=== PATIENT | male | born 1940 | race African-American/Black ===

== ENCOUNTER 2018-03-21 11:44 | Observation (INO) ==
[2018-03-21] MEDS ORDERED: NITROGLYCERIN 2% OINT 1 INCH/GM PACK TOP STA (13:03)
[2018-03-21] MEDS ORDERED: ASPIRIN 325 MG TABLET PO STA (13:03)
[2018-03-21 13:31] LABS: Basophils % 0.5 % (0.0-0.8); Eosinophils # 0.3 10*3/uL (0.0-0.87); Hematocrit 39.2 VOL% (42.0-52.0); Hemoglobin 12.5 GM/DL (14.0-18.0); Immature Granulocytes % 0.2 %; Immature Granulocytes Absolute 0.02 #; Lymphocytes # 2.2 10*3/uL (1.4-4.0); Lymphocytes % 26.7 % (21.2-54.2); Mean Corpuscular HGB Conc 31.9 GM/DL (32-36); Mean Corpuscular Hemoglobin 31 PG (27-34); Mean Corpuscular Volume 96.6 FL (87-102); Mean Platelet Volume 12.1 FL (9.6-12.0); Monocytes # 0.6 10*3/uL (0.11-0.8); Neutrophils # 5.1 10*3/uL (1.4-7.4); Neutrophils % 61.6 % (38.7-73.9); Platelet Count 204 T/CUMM (130-400); Red Blood Count 4.06 MC/CUMM (3.8-5.5); Red Cell Distribution Width 13.2 % (9.3-17.3); White Blood Count 8.3 T/CUMM (4-12)
[2018-03-21 13:40] LABS: Apearance,Urine CLEAR (Clear); Bilirubin,Urine Negative (Negative); Blood, Urine Negative (Negative); Glucose,Urine (UA) Negative (Negative); Ketones,Urine Negative (Negative); Mucus,Urine Occasional /LPF (Occasional); Nitrite,Urine Negative (Negative); Protein,Urine 30 MG/DL; RBC,Urine <1 /HPF (0-4); Urine Color Yellow (Yellow); Urine Specific Gravity 1.012 (1.001-1.035); Urine Urobilinogen < 2.0 EU/DL (0.2-1.0); WBC,Urine <1 /HPF (0-6)
[2018-03-21 13:46] LABS: PT Patient Result 10.5 SECS
[2018-03-21 14:11] LABS: Albumin 3.8 G/DL (3.4-5.0); Bilirubin,Total 0.5 MG/DL (0.2-1.0); Calcium 9.1 MG/DL (8.5-10.1); Osmolality,Calculated 285.3 MOS/KG (273-304); Potassium 4.5 MMOL/L (3.5-5.1); Total Protein 7.5 G/DL (6.4-8.3)
[2018-03-21] MEDS ORDERED: GLUCAGON 1 MG VIAL IM PRN (15:32)
[2018-03-21] MEDS ORDERED: MORPHINE 4 MG/1 ML VIAL IV PRN (15:32)
[2018-03-21] MEDS ORDERED: DEXTROSE 50% 25 GM/50 ML VIAL IV PRN (15:32)
[2018-03-21] MEDS ORDERED: ONDANSETRON 4 MG/2 ML VIAL IV PRN (15:32)
[2018-03-21] MEDS ORDERED: ALUM/MAG/SIMETH/LIDO VISC 1:1 30 ML BOTTLE PO STA (15:41)
[2018-03-21] MEDS ORDERED: ACETAMINOPHEN 325 MG TABLET PO PRN (16:52)
[2018-03-21] MEDS ORDERED: ALBUTEROL 2.5 MG/3 ML NEB RESP TX PRN (16:52)
[2018-03-21] MEDS: INSULIN LISPRO 100 UNIT/ML SUBCUT SCH ×2 (17:56→21:26)
[2018-03-21] MEDS: CARVEDILOL 6.25 MG TABLET PO SCH (21:24)
[2018-03-21] MEDS: MAGNESIUM CHLORIDE 64 MG TABLET PO SCH (21:25)
[2018-03-21] MEDS: PANTOPRAZOLE 40 MG TABLET PO SCH (21:25)
[2018-03-21] MEDS: metFORMIN 500 MG TABLET PO SCH (21:25)
[2018-03-21] MEDS: THEOPHYLLINE ER 300 MG TABLET PO SCH (21:26)
[2018-03-22 04:28] LABS: Basophils % 0.5 % (0.0-0.8); Eosinophils # 0.3 10*3/uL (0.0-0.87); Eosinophils % 4.2 % (0.00-10.9); Hematocrit 35.7 VOL% (42.0-52.0); Hemoglobin 11.5 GM/DL (14.0-18.0); Immature Granulocytes % 0.4 %; Immature Granulocytes Absolute 0.03 #; Lymphocytes # 2.7 10*3/uL (1.4-4.0); Lymphocytes % 34.6 % (21.2-54.2); Mean Corpuscular HGB Conc 32.2 GM/DL (32-36); Mean Corpuscular Hemoglobin 31 PG (27-34); Mean Corpuscular Volume 94.9 FL (87-102); Mean Platelet Volume 12.2 FL (9.6-12.0); Monocytes # 0.6 10*3/uL (0.11-0.8); Monocytes % 7.4 % (1.7-12.7); Neutrophils # 4.2 10*3/uL (1.4-7.4); Neutrophils % 52.9 % (38.7-73.9); Platelet Count 189 T/CUMM (130-400); Red Blood Count 3.76 MC/CUMM (3.8-5.5); Red Cell Distribution Width 13.3 % (9.3-17.3); White Blood Count 7.9 T/CUMM (4-12)
[2018-03-22 05:15] LABS: Calcium 8.6 MG/DL (8.5-10.1); Osmolality,Calculated 280.4 MOS/KG (273-304); Potassium 4.1 MMOL/L (3.5-5.1); Risk Ratio 2.78; Thyroid Stimulating Hormone 0.612 uIU/ml (0.358-3.74); VLDL CHOLESTEROL 21.6 MG/DL
[2018-03-22] MEDS ORDERED: buPROPion XL 150 MG TABLET PO SCH (09:00)
[2018-03-22] MEDS ORDERED: PRAVASTATIN 20 MG TABLET PO SCH (09:00)
[2018-03-22] MEDS ORDERED: BUMETANIDE 1 MG TABLET PO SCH (09:00)
[2018-03-22] MEDS ORDERED: SERTRALINE 50 MG TABLET PO SCH (09:00)
[2018-03-22] MEDS ORDERED: ASPIRIN EC 325 MG TABLET PO SCH (09:00)
[2018-03-22] MEDS: INSULIN LISPRO 100 UNIT/ML SUBCUT SCH ×3 (09:54→17:14)
[2018-03-22] MEDS: CARVEDILOL 6.25 MG TABLET PO SCH ×2 (09:54→16:47)
[2018-03-22] MEDS: THEOPHYLLINE ER 300 MG TABLET PO SCH ×2 (09:54→16:47)
[2018-03-22] MEDS: metFORMIN 500 MG TABLET PO SCH ×2 (09:54→16:47)
[2018-03-22] MEDS: PANTOPRAZOLE 40 MG TABLET PO SCH (14:24)
[2018-03-22] MEDS: MAGNESIUM CHLORIDE 64 MG TABLET PO SCH (14:24)
[2018-03-22 17:28] VITALS: BP 107/63
== END 2018-03-22 18:15 | disposition home health service (06) ==
LOC: N.ED 11:44 → N.EDINP 11:44 → SUATTDRO 15:32 → N.TELEN 16:51
PROVIDERS: ADMIT Internal Medicine; ATTEND Hospitalist

== ENCOUNTER 2019-06-21 14:20 | Inpatient (IN) ==
[2019-06-21 16:06] LABS: Basophils # 0.1 10*3/uL (0.0-0.2); Basophils % 0.6 % (0.0-0.8); Eosinophils # 0.5 10*3/uL (0.0-0.87); Eosinophils % 3.1 % (0.00-10.9); Hematocrit 34.7 VOL% (42.0-52.0); Hemoglobin 11.3 GM/DL (14.0-18.0); Immature Granulocytes % 0.4 %; Immature Granulocytes Absolute 0.06 #; Lymphocytes # 2.7 10*3/uL (1.4-4.0); Mean Corpuscular HGB Conc 32.6 GM/DL (32-36); Mean Corpuscular Volume 95.9 FL (87-102); Mean Platelet Volume 10.8 FL (9.6-12.0); Monocytes % 5.2 % (1.7-12.7); Neutrophils % 71.7 % (38.7-73.9); Platelet Count 233 T/CUMM (130-400); Red Blood Count 3.62 MC/CUMM (3.8-5.5); Red Cell Distribution Width 13.3 % (9.3-17.3); White Blood Count 14.4 T/CUMM (4-12)
[2019-06-21 16:29] LABS: Alanine Aminotransferase 10 U/L (16-61); Albumin 3.3 G/DL (3.4-5.0); Alkaline Phosphatase 71 U/L (45-117); Aspartate Amino Transferase 11 U/L (0-37); Bilirubin,Total < 0.39 MG/DL (0.2-1.0); Blood Urea Nitrogen 49 MG/DL (7-18); Calcium 8.3 MG/DL (8.5-10.1); Estimated Glom Filtration Rate 69 ML/MIN; Glucose 100 MG/DL (74-106); Osmolality,Calculated 291.4 MOS/KG (273-304); Total Protein 7.3 G/DL (6.4-8.3)
[2019-06-21] MEDS ORDERED: NITROGLYCERIN SL 0.4 MG TABLET SL PRN (17:13)
[2019-06-21] MEDS ORDERED: DEXTROSE 50% 25 GM/50 ML VIAL IV PRN ×2 (17:27)
[2019-06-21] MEDS ORDERED: ONDANSETRON 4 MG/2 ML VIAL IV PRN (17:27)
[2019-06-21] MEDS ORDERED: ZALEPLON 5 MG CAPSULE PO PRN (17:27)
[2019-06-21] MEDS ORDERED: ACETAMINOPHEN 325 MG TABLET PO PRN (17:27)
[2019-06-21] MEDS ORDERED: GLUCAGON 1 MG VIAL IM PRN (17:27)
[2019-06-21] MEDS ORDERED: hydrALAZINE 20 MG/1 ML VIAL IV PRN (17:49)
[2019-06-21] MEDS: SODIUM CHLORIDE 0.45% 1,000 ML IV SCH (18:46)
[2019-06-21] MEDS: diphenhydrAMINE CAP 25 MG CAPSULE PO SCH (19:09)
[2019-06-21] MEDS ORDERED: LEVOFLOXACIN INJ 500 MG in PREMIX 1 EACH IV SCH (20:00)
[2019-06-21] MEDS: methylPREDNISolone SOD SUC 40 MG/1 ML VIAL IV SCH (20:07)
[2019-06-21] MEDS: ALBUTEROL 2.5 MG/3 ML NEB RESP TX SCH (20:45)
[2019-06-21] MEDS ORDERED: FAMOTIDINE 20 MG TABLET PO ONE (21:00)
[2019-06-21] MEDS: ASPIRIN EC 325 MG TABLET PO SCH (21:15)
[2019-06-21] MEDS: CARBIDOPA/LEVODOPA 25-100 MG TABLET PO SCH (21:16)
[2019-06-21] MEDS: PRIMIDONE 50 MG TABLET PO SCH (21:16)
[2019-06-21] MEDS: carvediloL 6.25 MG TABLET PO SCH (21:16)
[2019-06-21] MEDS: HEPARIN 5,000 UNIT/1 ML VIAL SUBCUT SCH (21:17)
[2019-06-21] MEDS: ZALEPLON 5 MG CAPSULE PO SCH (21:17)
[2019-06-21] MEDS: INSULIN REGULAR 100 UNIT/ML SUBCUT SCH (21:27)
[2019-06-22] MEDS: diphenhydrAMINE CAP 25 MG CAPSULE PO SCH ×4 (00:32→17:14)
[2019-06-22] MEDS: methylPREDNISolone SOD SUC 40 MG/1 ML VIAL IV SCH (02:02)
[2019-06-22] MEDS ORDERED: ALBUTEROL/IPRATROPIUM 3 ML NEB RESP TX ONE (03:27)
[2019-06-22 04:52] LABS: Basophils # 0.1 10*3/uL (0.0-0.2); Basophils % 0.4 % (0.0-0.8); Eosinophils % 0.3 % (0.00-10.9); Hematocrit 35.3 VOL% (42.0-52.0); Hemoglobin 11.3 GM/DL (14.0-18.0); Immature Granulocytes % 0.5 %; Immature Granulocytes Absolute 0.07 #; Lymphocytes # 1.7 10*3/uL (1.4-4.0); Lymphocytes % 13.2 % (21.2-54.2); Mean Corpuscular Volume 95.1 FL (87-102); Mean Platelet Volume 11.4 FL (9.6-12.0); Monocytes % 2.4 % (1.7-12.7); Neutrophils % 83.2 % (38.7-73.9); Platelet Count 235 T/CUMM (130-400); Red Blood Count 3.71 MC/CUMM (3.8-5.5); Red Cell Distribution Width 13.4 % (9.3-17.3); White Blood Count 12.7 T/CUMM (4-12)
[2019-06-22 05:25] LABS: Alanine Aminotransferase < 9 U/L (16-61); Albumin 3.2 G/DL (3.4-5.0); Alkaline Phosphatase 74 U/L (45-117); Aspartate Amino Transferase 13 U/L (0-37); Blood Urea Nitrogen 45 MG/DL (7-18); Calcium 8.7 MG/DL (8.5-10.1); Estimated Glom Filtration Rate 74 ML/MIN; Glucose 124 MG/DL (74-106); HDL Cholesterol 43 MG/DL (40-60); Osmolality,Calculated 289.5 MOS/KG (273-304); Risk Ratio 3.44; Thyroid Stimulating Hormone 0.402 uIU/ml (0.358-3.74); Triglycerides 133 MG/DL (2-150); VLDL CHOLESTEROL 26.6 MG/DL
[2019-06-22] MEDS: HEPARIN 5,000 UNIT/1 ML VIAL SUBCUT SCH ×3 (06:14→22:35)
[2019-06-22] MEDS: ALBUTEROL 2.5 MG/3 ML NEB RESP TX SCH ×3 (07:16→19:20)
[2019-06-22] MEDS ORDERED: ERGOCALCIFEROL 50,000 UNIT CAPSULE PO SCH (09:00)
[2019-06-22] MEDS: methylPREDNISolone SOD SUC 125 MG/2 ML VIAL IV SCH ×3 (10:12→22:10)
[2019-06-22] MEDS: INSULIN REGULAR 100 UNIT/ML SUBCUT SCH ×4 (10:14→22:36)
[2019-06-22] MEDS: BUMETANIDE 1 MG TABLET PO SCH (10:15)
[2019-06-22] MEDS: metFORMIN 500 MG TABLET PO SCH ×2 (10:16→17:14)
[2019-06-22] MEDS: MULTIVITAMIN (CENTRUM) TABLET PO SCH (10:16)
[2019-06-22] MEDS: POTASSIUM CHLORIDE 20 MEQ TABLET PO SCH (10:17)
[2019-06-22] MEDS: RANITIDINE 150 MG TABLET PO SCH ×2 (10:17→22:08)
[2019-06-22] MEDS: CETIRIZINE 10 MG TABLET PO SCH (10:17)
[2019-06-22] MEDS: SIMVASTATIN 10 MG TABLET PO SCH (10:18)
[2019-06-22] MEDS: DOCUSATE SODIUM 100 MG CAPSULE PO SCH (10:19)
[2019-06-22] MEDS: CARBIDOPA/LEVODOPA 25-100 MG TABLET PO SCH ×2 (10:19→22:09)
[2019-06-22] MEDS: THEOPHYLLINE ER 300 MG TABLET PO SCH ×2 (10:19→17:14)
[2019-06-22] MEDS: SERTRALINE 50 MG TABLET PO SCH (10:20)
[2019-06-22] MEDS: buPROPion XL 150 MG TABLET PO SCH (10:20)
[2019-06-22] MEDS: MAGNESIUM CHLORIDE 64 MG TABLET PO SCH (10:29)
[2019-06-22] MEDS: ISOSORBIDE MONONITRATE 30 MG TABLET PO SCH (10:29)
[2019-06-22] MEDS: carvediloL 6.25 MG TABLET PO SCH ×2 (10:35→22:09)
[2019-06-22] MEDS: diphenhydrAMINE 2% CREAM 28 GM TUBE TOP PRN ×2 (12:56→22:15)
[2019-06-22] MEDS: hydrOXYzine HCL 25 MG TABLET PO SCH ×2 (14:17→22:18)
[2019-06-22] MEDS: SODIUM CHLORIDE 0.45% 1,000 ML IV SCH (15:31)
[2019-06-22] MEDS: ASPIRIN EC 325 MG TABLET PO SCH (22:08)
[2019-06-22] MEDS: ZALEPLON 5 MG CAPSULE PO SCH (22:09)
[2019-06-22] MEDS: PRIMIDONE 50 MG TABLET PO SCH (22:09)
[2019-06-23] MEDS: diphenhydrAMINE CAP 25 MG CAPSULE PO SCH ×5 (00:25→23:57)
[2019-06-23] MEDS: methylPREDNISolone SOD SUC 125 MG/2 ML VIAL IV SCH ×4 (05:59→22:31)
[2019-06-23] MEDS: HEPARIN 5,000 UNIT/1 ML VIAL SUBCUT SCH ×3 (05:59→21:42)
[2019-06-23 06:52] LABS: Basophils % 0.2 % (0.0-0.8); Hematocrit 36.1 VOL% (42.0-52.0); Hemoglobin 11.3 GM/DL (14.0-18.0); Immature Granulocytes % 0.8 %; Immature Granulocytes Absolute 0.11 #; Lymphocytes # 2.1 10*3/uL (1.4-4.0); Lymphocytes % 14.6 % (21.2-54.2); Mean Corpuscular HGB Conc 31.3 GM/DL (32-36); Mean Corpuscular Volume 97.3 FL (87-102); Mean Platelet Volume 11.5 FL (9.6-12.0); Neutrophils % 79.4 % (38.7-73.9); Platelet Count 251 T/CUMM (130-400); Red Blood Count 3.71 MC/CUMM (3.8-5.5); Red Cell Distribution Width 13.2 % (9.3-17.3); White Blood Count 14.3 T/CUMM (4-12)
[2019-06-23 07:20] LABS: Alanine Aminotransferase 9 U/L (16-61); Alkaline Phosphatase 73 U/L (45-117); Aspartate Amino Transferase 7 U/L (0-37); Bilirubin,Total < 0.39 MG/DL (0.2-1.0); Blood Urea Nitrogen 39 MG/DL (7-18); Calcium 8.8 MG/DL (8.5-10.1); Estimated Glom Filtration Rate 88 ML/MIN; Glucose 134 MG/DL (74-106); Osmolality,Calculated 285.7 MOS/KG (273-304); Total Protein 7.6 G/DL (6.4-8.3)
[2019-06-23] MEDS: ALBUTEROL 2.5 MG/3 ML NEB RESP TX SCH ×3 (07:24→20:33)
[2019-06-23] MEDS: INSULIN REGULAR 100 UNIT/ML SUBCUT SCH ×4 (09:42→21:42)
[2019-06-23] MEDS: CETIRIZINE 10 MG TABLET PO SCH (09:43)
[2019-06-23] MEDS: MAGNESIUM CHLORIDE 64 MG TABLET PO SCH (09:43)
[2019-06-23] MEDS: buPROPion XL 150 MG TABLET PO SCH (09:43)
[2019-06-23] MEDS: metFORMIN 500 MG TABLET PO SCH ×2 (09:43→16:30)
[2019-06-23] MEDS: BUMETANIDE 1 MG TABLET PO SCH (09:43)
[2019-06-23] MEDS: RANITIDINE 150 MG TABLET PO SCH ×2 (09:43→21:35)
[2019-06-23] MEDS: SIMVASTATIN 10 MG TABLET PO SCH (09:44)
[2019-06-23] MEDS: carvediloL 6.25 MG TABLET PO SCH ×2 (09:44→21:35)
[2019-06-23] MEDS: GABAPENTIN 100 MG CAPSULE PO SCH ×3 (09:44→21:35)
[2019-06-23] MEDS: DOCUSATE SODIUM 100 MG CAPSULE PO SCH (09:44)
[2019-06-23] MEDS: CARBIDOPA/LEVODOPA 25-100 MG TABLET PO SCH ×2 (09:44→21:35)
[2019-06-23] MEDS: THEOPHYLLINE ER 300 MG TABLET PO SCH ×2 (09:44→16:30)
[2019-06-23] MEDS: POTASSIUM CHLORIDE 20 MEQ TABLET PO SCH (09:44)
[2019-06-23] MEDS: cefTRIAXone 1,000 MG in SYRINGE 1 EACH IV SCH (09:45)
[2019-06-23] MEDS: MULTIVITAMIN (CENTRUM) TABLET PO SCH (09:45)
[2019-06-23] MEDS: ISOSORBIDE MONONITRATE 30 MG TABLET PO SCH (09:47)
[2019-06-23] MEDS: SERTRALINE 50 MG TABLET PO SCH (09:56)
[2019-06-23] MEDS: ACYCLOVIR 5% OINT 15 GM TUBE TOP SCH ×4 (09:56→21:43)
[2019-06-23] MEDS: hydrOXYzine HCL 25 MG TABLET PO SCH ×3 (09:57→21:35)
[2019-06-23] MEDS: SODIUM CHLORIDE 0.45% 1,000 ML IV SCH (11:39)
[2019-06-23] MEDS: ACYCLOVIR INJ 500 MG in SODIUM CHLORIDE 0.9% 100 ML IV SCH ×3 (12:30→23:59)
[2019-06-23] MEDS: PRIMIDONE 50 MG TABLET PO SCH (21:35)
[2019-06-23] MEDS: ASPIRIN EC 325 MG TABLET PO SCH (21:35)
[2019-06-23] MEDS: ZALEPLON 5 MG CAPSULE PO SCH (21:35)
[2019-06-24] MEDS: methylPREDNISolone SOD SUC 125 MG/2 ML VIAL IV SCH ×2 (04:34→10:40)
[2019-06-24] MEDS: diphenhydrAMINE CAP 25 MG CAPSULE PO SCH ×2 (05:09→13:29)
[2019-06-24] MEDS: ACYCLOVIR 5% OINT 15 GM TUBE TOP SCH ×2 (05:09→09:58)
[2019-06-24] MEDS: ALBUTEROL 2.5 MG/3 ML NEB RESP TX SCH (05:33)
[2019-06-24] MEDS: HEPARIN 5,000 UNIT/1 ML VIAL SUBCUT SCH (05:35)
[2019-06-24 07:51] VITALS: BP 156/98
[2019-06-24 08:18] LABS: Basophils % 0.1 % (0.0-0.8); Hematocrit 39.2 VOL% (42.0-52.0); Hemoglobin 12.3 GM/DL (14.0-18.0); Immature Granulocytes % 1.7 %; Immature Granulocytes Absolute 0.23 #; Lymphocytes # 1.8 10*3/uL (1.4-4.0); Lymphocytes % 12.8 % (21.2-54.2); Mean Corpuscular HGB Conc 31.4 GM/DL (32-36); Mean Corpuscular Volume 97.5 FL (87-102); Mean Platelet Volume 11.1 FL (9.6-12.0); Monocytes % 3.3 % (1.7-12.7); Neutrophils % 82.1 % (38.7-73.9); Platelet Count 248 T/CUMM (130-400); Red Blood Count 4.02 MC/CUMM (3.8-5.5); Red Cell Distribution Width 13.1 % (9.3-17.3); White Blood Count 13.8 T/CUMM (4-12)
[2019-06-24] MEDS: BUMETANIDE 1 MG TABLET PO SCH (09:43)
[2019-06-24] MEDS: CARBIDOPA/LEVODOPA 25-100 MG TABLET PO SCH (09:43)
[2019-06-24] MEDS: POTASSIUM CHLORIDE 20 MEQ TABLET PO SCH (09:43)
[2019-06-24] MEDS: SERTRALINE 50 MG TABLET PO SCH (09:43)
[2019-06-24] MEDS: DOCUSATE SODIUM 100 MG CAPSULE PO SCH (09:43)
[2019-06-24] MEDS: RANITIDINE 150 MG TABLET PO SCH (09:43)
[2019-06-24] MEDS: CETIRIZINE 10 MG TABLET PO SCH (09:43)
[2019-06-24] MEDS: SIMVASTATIN 10 MG TABLET PO SCH (09:43)
[2019-06-24] MEDS: hydrOXYzine HCL 25 MG TABLET PO SCH (09:45)
[2019-06-24] MEDS: MULTIVITAMIN (CENTRUM) TABLET PO SCH (09:45)
[2019-06-24] MEDS: metFORMIN 500 MG TABLET PO SCH (09:45)
[2019-06-24] MEDS: buPROPion XL 150 MG TABLET PO SCH (09:45)
[2019-06-24] MEDS: ISOSORBIDE MONONITRATE 30 MG TABLET PO SCH (09:45)
[2019-06-24] MEDS: MAGNESIUM CHLORIDE 64 MG TABLET PO SCH (09:45)
[2019-06-24] MEDS: THEOPHYLLINE ER 300 MG TABLET PO SCH (09:45)
[2019-06-24] MEDS: carvediloL 6.25 MG TABLET PO SCH (09:45)
[2019-06-24] MEDS: GABAPENTIN 100 MG CAPSULE PO SCH (09:45)
[2019-06-24] MEDS: INSULIN REGULAR 100 UNIT/ML SUBCUT SCH ×2 (09:46→13:29)
[2019-06-24] MEDS: cefTRIAXone 1,000 MG in SYRINGE 1 EACH IV SCH (09:48)
[2019-06-24] MEDS: ACYCLOVIR INJ 500 MG in SODIUM CHLORIDE 0.9% 100 ML IV SCH (10:49)
== END 2019-06-24 13:36 | disposition home health service (06) | DRG 607 ==
LOC: N.ED 14:20 → N.EDINP 14:20 → INTOOBSV 17:27 → OBSVTOIN 17:27 → N.2W 18:05 → N.5E 06-23 14:56
PROVIDERS: ADMIT Internal Medicine; ATTEND Internal Medicine

== ENCOUNTER 2020-02-08 11:38 | Inpatient (IN) ==
[2020-02-08 12:50] LABS: Basophils # 0.1 10*3/uL (0.0-0.2); Basophils % 0.3 % (0.0-0.8); Eosinophils # 0.2 10*3/uL (0.0-0.87); Eosinophils % 0.9 % (0.00-10.9); Hematocrit 35.1 VOL% (42.0-52.0); Hemoglobin 11.1 GM/DL (14.0-18.0); Immature Granulocytes % 0.4 %; Immature Granulocytes Absolute 0.07 #; Lymphocytes # 1.6 10*3/uL (1.4-4.0); Lymphocytes % 9.9 % (21.2-54.2); Mean Corpuscular HGB Conc 31.6 GM/DL (32-36); Mean Platelet Volume 11.7 FL (9.6-12.0); Monocytes % 6.3 % (1.7-12.7); Neutrophils % 82.2 % (38.7-73.9); Platelet Count 198 T/CUMM (130-400); Red Blood Count 3.62 MC/CUMM (3.8-5.5); Red Cell Distribution Width 13.5 % (9.3-17.3); White Blood Count 16.2 T/CUMM (4-12)
[2020-02-08 13:05] LABS: INR 1.1; PT Patient Result 11.3 SECS (9.8-11.9); Partial Thromboplastin Time 31.2 SECS (23.9-33.8)
[2020-02-08] MEDS ORDERED: methylPREDNISolone SOD SUC 40 MG/1 ML VIAL IV STA (13:23)
[2020-02-08 13:33] LABS: Alanine Aminotransferase < 6 U/L (16-61); Albumin 3.5 G/DL (3.4-5.0); Alkaline Phosphatase 88 U/L (45-117); Aspartate Amino Transferase 16 U/L (0-37); Blood Urea Nitrogen 34 MG/DL (7-18); Calcium 8.6 MG/DL (8.5-10.1); Estimated Glom Filtration Rate 62 ML/MIN; Glucose 103 MG/DL (74-106); Osmolality,Calculated 282.7 MOS/KG (273-304)
[2020-02-08] MEDS ORDERED: SODIUM CHLORIDE 0.9% 250 ML IV STA (14:36)
[2020-02-08] MEDS ORDERED: cefTRIAXone 1,000 MG in SODIUM CHLORIDE 0.9% 100 ML IV STA (14:38)
[2020-02-08] MEDS ORDERED: GLUCAGON 1 MG VIAL IM PRN (15:37)
[2020-02-08] MEDS ORDERED: DEXTROSE 50% 25 GM/50 ML VIAL IV PRN (15:37)
[2020-02-08] MEDS ORDERED: ONDANSETRON 4 MG/2 ML VIAL IV PRN (15:37)
[2020-02-08] MEDS ORDERED: NITROGLYCERIN SL 0.4 MG TABLET SL PRN (15:39)
[2020-02-08] MEDS ORDERED: PANTOPRAZOLE 40 MG TABLET PO PRN (15:39)
[2020-02-08] MEDS: INSULIN LISPRO 100 UNIT/ML SUBCUT SCH ×2 (18:33→20:32)
[2020-02-08] MEDS: THEOPHYLLINE ER 300 MG TABLET PO SCH (18:48)
[2020-02-08] MEDS: DOCUSATE SODIUM 100 MG CAPSULE PO SCH (20:46)
[2020-02-08] MEDS: GABAPENTIN 100 MG CAPSULE PO SCH (20:49)
[2020-02-08] MEDS: ASPIRIN EC 325 MG TABLET PO SCH (20:49)
[2020-02-08] MEDS: ERYTHROMYCIN 0.5% OPHT OINT 3.5 GM TUBE BOTH EYES SCH (20:49)
[2020-02-08] MEDS: PRIMIDONE 50 MG TABLET PO SCH (20:50)
[2020-02-08] MEDS: levETIRAcetam 500 MG TABLET PO SCH (20:50)
[2020-02-08] MEDS: CARBIDOPA/LEVODOPA 25-100 MG TABLET PO SCH (20:50)
[2020-02-08] MEDS ORDERED: carvediloL 6.25 MG TABLET PO SCH (21:00)
[2020-02-08] MEDS ORDERED: metOLazone 2.5 MG TABLET PO SCH (21:00)
[2020-02-09 05:18] LABS: Basophils # 0.1 10*3/uL (0.0-0.2); Basophils % 0.4 % (0.0-0.8); Eosinophils # 0.3 10*3/uL (0.0-0.87); Eosinophils % 1.6 % (0.00-10.9); Hematocrit 32.4 VOL% (42.0-52.0); Hemoglobin 10.1 GM/DL (14.0-18.0); Immature Granulocytes % 0.3 %; Immature Granulocytes Absolute 0.05 #; Lymphocytes # 3.5 10*3/uL (1.4-4.0); Mean Corpuscular HGB Conc 31.2 GM/DL (32-36); Mean Corpuscular Volume 97.9 FL (87-102); Mean Platelet Volume 11.8 FL (9.6-12.0); Monocytes % 6.9 % (1.7-12.7); Neutrophils % 67.8 % (38.7-73.9); Platelet Count 181 T/CUMM (130-400); Red Blood Count 3.31 MC/CUMM (3.8-5.5); Red Cell Distribution Width 13.6 % (9.3-17.3); White Blood Count 15.4 T/CUMM (4-12)
[2020-02-09 05:59] LABS: Calcium 8.6 MG/DL (8.5-10.1); Osmolality,Calculated 284.5 MOS/KG (273-304); Risk Ratio 2.7; Thyroid Stimulating Hormone 0.841 uIU/ml (0.358-3.74)
[2020-02-09] MEDS ORDERED: ISOSORBIDE MONONITRATE 30 MG TABLET PO SCH (09:00)
[2020-02-09] MEDS ORDERED: BUMETANIDE 1 MG TABLET PO SCH (09:00)
[2020-02-09] MEDS: GABAPENTIN 100 MG CAPSULE PO SCH ×3 (10:07→21:08)
[2020-02-09] MEDS: THEOPHYLLINE ER 300 MG TABLET PO SCH ×2 (10:07→18:01)
[2020-02-09] MEDS: CARBIDOPA/LEVODOPA 25-100 MG TABLET PO SCH ×2 (10:07→21:08)
[2020-02-09] MEDS: levETIRAcetam 500 MG TABLET PO SCH ×2 (10:07→21:08)
[2020-02-09] MEDS: SERTRALINE 100 MG TABLET PO SCH (10:07)
[2020-02-09] MEDS: buPROPion XL 150 MG TABLET PO SCH (10:07)
[2020-02-09] MEDS: SIMVASTATIN 10 MG TABLET PO SCH (10:08)
[2020-02-09] MEDS: CETIRIZINE 10 MG TABLET PO SCH (10:08)
[2020-02-09] MEDS: POTASSIUM CHLORIDE 20 MEQ TABLET PO SCH (10:08)
[2020-02-09] MEDS: cefTRIAXone 1,000 MG in SYRINGE 1 EACH IV SCH (10:08)
[2020-02-09] MEDS: INSULIN LISPRO 100 UNIT/ML SUBCUT SCH ×4 (11:21→21:09)
[2020-02-09] MEDS: ERYTHROMYCIN 0.5% OPHT OINT 3.5 GM TUBE BOTH EYES SCH ×4 (11:21→21:10)
[2020-02-09 15:16] LABS: Apearance,Urine CLEAR (Clear); Bilirubin,Urine Negative (Negative); Blood, Urine Negative (Negative); Glucose,Urine (UA) Negative (Negative); Ketones,Urine Negative (Negative); Mucus,Urine Occasional /LPF (Occasional); Nitrite,Urine Negative (Negative); Protein,Urine Negative; RBC,Urine 2 /HPF (0-4); Urine Color Yellow (Yellow); Urine Specific Gravity 1.012 (1.001-1.035); Urine Urobilinogen < 2.0 EU/DL (0.2-1.0); WBC,Urine 4 /HPF (0-6)
[2020-02-09] MEDS: ACETAMINOPHEN 325 MG TABLET PO PRN (18:03)
[2020-02-09] MEDS: ASPIRIN EC 325 MG TABLET PO SCH (21:08)
[2020-02-09] MEDS: PRIMIDONE 50 MG TABLET PO SCH (21:08)
[2020-02-09] MEDS: DOCUSATE SODIUM 100 MG CAPSULE PO SCH (21:09)
[2020-02-10 06:39] LABS: Basophils # 0.1 10*3/uL (0.0-0.2); Basophils % 0.4 % (0.0-0.8); Eosinophils # 0.4 10*3/uL (0.0-0.87); Hematocrit 34.1 VOL% (42.0-52.0); Hemoglobin 10.6 GM/DL (14.0-18.0); Immature Granulocytes % 0.4 %; Immature Granulocytes Absolute 0.05 #; Lymphocytes # 2.4 10*3/uL (1.4-4.0); Lymphocytes % 20.1 % (21.2-54.2); Mean Corpuscular HGB Conc 31.1 GM/DL (32-36); Mean Corpuscular Volume 98.8 FL (87-102); Mean Platelet Volume 11.9 FL (9.6-12.0); Neutrophils % 69.1 % (38.7-73.9); Platelet Count 178 T/CUMM (130-400); Red Blood Count 3.45 MC/CUMM (3.8-5.5); Red Cell Distribution Width 13.4 % (9.3-17.3)
[2020-02-10 07:07] LABS: Calcium 8.5 MG/DL (8.5-10.1); Osmolality,Calculated 283.5 MOS/KG (273-304)
[2020-02-10] MEDS: levETIRAcetam 500 MG TABLET PO SCH ×2 (09:10→21:33)
[2020-02-10] MEDS: SIMVASTATIN 10 MG TABLET PO SCH (09:10)
[2020-02-10] MEDS: buPROPion XL 150 MG TABLET PO SCH (09:10)
[2020-02-10] MEDS: GABAPENTIN 100 MG CAPSULE PO SCH ×2 (09:10→14:35)
[2020-02-10] MEDS: SERTRALINE 100 MG TABLET PO SCH (09:10)
[2020-02-10] MEDS: CARBIDOPA/LEVODOPA 25-100 MG TABLET PO SCH ×2 (09:10→21:33)
[2020-02-10] MEDS: CETIRIZINE 10 MG TABLET PO SCH (09:10)
[2020-02-10] MEDS: POTASSIUM CHLORIDE 20 MEQ TABLET PO SCH (09:10)
[2020-02-10] MEDS: THEOPHYLLINE ER 300 MG TABLET PO SCH ×2 (09:10→17:13)
[2020-02-10] MEDS: cefTRIAXone 1,000 MG in SYRINGE 1 EACH IV SCH (09:11)
[2020-02-10] MEDS: ERYTHROMYCIN 0.5% OPHT OINT 3.5 GM TUBE BOTH EYES SCH ×4 (09:13→21:40)
[2020-02-10] MEDS: INSULIN LISPRO 100 UNIT/ML SUBCUT SCH ×4 (09:14→21:41)
[2020-02-10] MEDS ORDERED: BUTALBITAL/ACETAMIN/CAFFEINE 50-325-40 MG TABLET PO PRN (17:17)
[2020-02-10] MEDS: AMITRIPTYLINE 25 MG TABLET PO SCH (21:32)
[2020-02-10] MEDS: DOCUSATE SODIUM 100 MG CAPSULE PO SCH (21:32)
[2020-02-10] MEDS: ASPIRIN EC 325 MG TABLET PO SCH (21:33)
[2020-02-11 05:31] LABS: Basophils # 0.1 10*3/uL (0.0-0.2); Basophils % 0.5 % (0.0-0.8); Eosinophils # 0.3 10*3/uL (0.0-0.87); Eosinophils % 2.4 % (0.00-10.9); Hematocrit 37.7 VOL% (42.0-52.0); Hemoglobin 11.4 GM/DL (14.0-18.0); Immature Granulocytes % 0.4 %; Immature Granulocytes Absolute 0.06 #; Lymphocytes # 2.3 10*3/uL (1.4-4.0); Lymphocytes % 16.8 % (21.2-54.2); Mean Corpuscular HGB Conc 30.2 GM/DL (32-36); Mean Platelet Volume 11.8 FL (9.6-12.0); Monocytes % 9.6 % (1.7-12.7); Neutrophils % 70.3 % (38.7-73.9); Platelet Count 198 T/CUMM (130-400); Red Blood Count 3.77 MC/CUMM (3.8-5.5); Red Cell Distribution Width 13.1 % (9.3-17.3); White Blood Count 13.4 T/CUMM (4-12)
[2020-02-11 05:55] LABS: Calcium 8.9 MG/DL (8.5-10.1); Osmolality,Calculated 281.8 MOS/KG (273-304)
[2020-02-11] MEDS: INSULIN LISPRO 100 UNIT/ML SUBCUT SCH ×4 (07:49→20:52)
[2020-02-11] MEDS: SERTRALINE 100 MG TABLET PO SCH (09:06)
[2020-02-11] MEDS: cefTRIAXone 1,000 MG in SYRINGE 1 EACH IV SCH (09:06)
[2020-02-11] MEDS: buPROPion XL 150 MG TABLET PO SCH (09:07)
[2020-02-11] MEDS: levETIRAcetam 500 MG TABLET PO SCH ×2 (09:08→20:50)
[2020-02-11] MEDS: CETIRIZINE 10 MG TABLET PO SCH (09:08)
[2020-02-11] MEDS: POTASSIUM CHLORIDE 20 MEQ TABLET PO SCH (09:08)
[2020-02-11] MEDS: THEOPHYLLINE ER 300 MG TABLET PO SCH ×2 (09:08→16:54)
[2020-02-11] MEDS: SIMVASTATIN 10 MG TABLET PO SCH (09:08)
[2020-02-11] MEDS: CARBIDOPA/LEVODOPA 25-100 MG TABLET PO SCH ×3 (09:08→20:50)
[2020-02-11] MEDS: ERYTHROMYCIN 0.5% OPHT OINT 3.5 GM TUBE BOTH EYES SCH ×4 (09:08→20:52)
[2020-02-11] MEDS: ASPIRIN EC 325 MG TABLET PO SCH (20:50)
[2020-02-11] MEDS: DOCUSATE SODIUM 100 MG CAPSULE PO SCH (20:50)
[2020-02-11] MEDS: AMITRIPTYLINE 25 MG TABLET PO SCH (20:51)
[2020-02-12] MEDS: INSULIN LISPRO 100 UNIT/ML SUBCUT SCH ×2 (07:25→11:46)
[2020-02-12] MEDS: cefTRIAXone 1,000 MG in SYRINGE 1 EACH IV SCH (08:47)
[2020-02-12] MEDS: SERTRALINE 100 MG TABLET PO SCH (08:48)
[2020-02-12] MEDS: levETIRAcetam 500 MG TABLET PO SCH (08:48)
[2020-02-12] MEDS: buPROPion XL 150 MG TABLET PO SCH (08:48)
[2020-02-12] MEDS: THEOPHYLLINE ER 300 MG TABLET PO SCH (08:48)
[2020-02-12] MEDS: POTASSIUM CHLORIDE 20 MEQ TABLET PO SCH (08:49)
[2020-02-12] MEDS: SIMVASTATIN 10 MG TABLET PO SCH (08:49)
[2020-02-12] MEDS: CETIRIZINE 10 MG TABLET PO SCH (08:49)
[2020-02-12] MEDS: CARBIDOPA/LEVODOPA 25-100 MG TABLET PO SCH (08:49)
[2020-02-12] MEDS: ERYTHROMYCIN 0.5% OPHT OINT 3.5 GM TUBE BOTH EYES SCH (08:51)
[2020-02-12] MEDS: ACETAMINOPHEN 325 MG TABLET PO PRN (11:45)
[2020-02-12 12:24] VITALS: BP 146/77
== END 2020-02-12 13:50 | DRG 683 ==
LOC: N.ED 11:38 → N.EDINP 15:34 → SUATTDRO 15:34 → N.3E 17:43 → N.4E 02-10 11:54
PROVIDERS: ADMIT Internal Medicine; ATTEND Internal Medicine Geriatric Medicine

== ENCOUNTER 2020-07-12 08:03 | Inpatient (IN) ==
[2020-07-12 09:07] LABS: Basophils # 0.1 10*3/uL (0.0-0.2); Basophils % 0.3 % (0.0-0.8); Eosinophils # 0.1 10*3/uL (0.0-0.87); Eosinophils % 0.5 % (0.00-10.9); Hematocrit 35.1 VOL% (42.0-52.0); Hemoglobin 11.1 GM/DL (14.0-18.0); Immature Granulocytes % 0.8 %; Immature Granulocytes Absolute 0.14 #; Lymphocytes # 1.2 10*3/uL (1.4-4.0); Lymphocytes % 6.8 % (21.2-54.2); Mean Corpuscular HGB Conc 31.6 GM/DL (32-36); Mean Corpuscular Volume 97.2 FL (87-102); Monocytes % 7.6 % (1.7-12.7); Platelet Count 178 T/CUMM (130-400); Red Blood Count 3.61 MC/CUMM (3.8-5.5); Red Cell Distribution Width 14.1 % (9.3-17.3); White Blood Count 18.3 T/CUMM (4-12)
[2020-07-12 09:26] LABS: Alanine Aminotransferase < 9 U/L (16-61); Albumin 3.3 G/DL (3.4-5.0); Alkaline Phosphatase 87 U/L (45-117); Aspartate Amino Transferase 15 U/L (0-37); Blood Urea Nitrogen 48 MG/DL (7-18); Calcium 8.6 MG/DL (8.5-10.1); Estimated Glom Filtration Rate 55 ML/MIN; Glucose 128 MG/DL (74-106); Osmolality,Calculated 291.5 MOS/KG (273-304); Total Protein 7.7 G/DL (6.4-8.3)
[2020-07-12] MEDS ORDERED: ACETAMINOPHEN 500 MG TABLET ONE (09:37)
[2020-07-12] MEDS ORDERED: ACETAMINOPHEN 500 MG TABLET PO STA (09:43)
[2020-07-12 10:20] LABS: Bilirubin,Urine Negative (Negative); Blood, Urine Large mg/dL (Negative); Glucose,Urine (UA) Negative (Negative); Hyaline Casts,Urine 9 /LPF (0-3); Ketones,Urine Negative (Negative); Nitrite,Urine Negative (Negative); Protein,Urine 100 MG/DL; RBC,Urine 135 /HPF (0-4); Urine Appearance CLOUDY (Clear); Urine Color Amber (Yellow); Urine Specific Gravity 1.018 (1.001-1.035); WBC,Urine 940 /HPF (0-6)
[2020-07-12] MEDS ORDERED: cefTRIAXone 1,000 MG in SODIUM CHLORIDE 0.9% 100 ML IV STA (11:27)
[2020-07-12] MEDS ORDERED: ONDANSETRON 4 MG/2 ML VIAL IV PRN (13:07)
[2020-07-12] MEDS ORDERED: ACETAMINOPHEN 325 MG TABLET PO PRN (13:07)
[2020-07-12] MEDS ORDERED: GLUCAGON 1 MG VIAL IM PRN ×3 (13:07→16:24)
[2020-07-12] MEDS ORDERED: DEXTROSE 50% 25 GM/50 ML VIAL IV PRN ×3 (13:07→16:24)
[2020-07-12] MEDS ORDERED: SODIUM CHLORIDE 0.9% 1,000 ML IV STA (13:39)
[2020-07-12] MEDS: SODIUM CHLORIDE 0.9% 1,000 ML IV SCH (16:44)
[2020-07-12] MEDS: CARBIDOPA/LEVODOPA 25-100 MG TABLET PO SCH (16:45)
[2020-07-12] MEDS: PANTOPRAZOLE 40 MG VIAL IV SCH (16:45)
[2020-07-12] MEDS: THEOPHYLLINE ER 300 MG TABLET PO SCH (16:50)
[2020-07-12 17:09] LABS: Calcium 8.3 MG/DL (8.5-10.1); Osmolality,Calculated 291.4 MOS/KG (273-304)
[2020-07-12] MEDS: INSULIN REGULAR 100 UNIT/ML SUBCUT SCH ×2 (17:37→23:18)
[2020-07-12] MEDS: levETIRAcetam 500 MG TABLET PO SCH (20:50)
[2020-07-12] MEDS: DOCUSATE SODIUM 100 MG CAPSULE PO SCH (20:50)
[2020-07-12] MEDS: AMITRIPTYLINE 25 MG TABLET PO SCH (20:50)
[2020-07-12] MEDS: metOLazone 2.5 MG TABLET PO SCH (20:51)
[2020-07-12] MEDS: ASPIRIN EC 325 MG TABLET PO SCH (20:51)
[2020-07-13] MEDS: SODIUM CHLORIDE 0.9% 1,000 ML IV SCH ×2 (00:45→12:57)
[2020-07-13 06:22] LABS: Basophils % 0.3 % (0.0-0.8); Eosinophils # 0.3 10*3/uL (0.0-0.87); Eosinophils % 1.9 % (0.00-10.9); Hematocrit 34.8 VOL% (42.0-52.0); Hemoglobin 10.3 GM/DL (14.0-18.0); Immature Granulocytes % 0.6 %; Immature Granulocytes Absolute 0.08 #; Lymphocytes # 1.5 10*3/uL (1.4-4.0); Lymphocytes % 11.4 % (21.2-54.2); Mean Corpuscular HGB Conc 29.6 GM/DL (32-36); Mean Corpuscular Volume 101.8 FL (87-102); Mean Platelet Volume 12.7 FL (9.6-12.0); Neutrophils % 79.8 % (38.7-73.9); Platelet Count 159 T/CUMM (130-400); Red Blood Count 3.42 MC/CUMM (3.8-5.5); Red Cell Distribution Width 14.1 % (9.3-17.3); White Blood Count 13.5 T/CUMM (4-12)
[2020-07-13 06:34] LABS: Osmolality,Calculated 290.1 MOS/KG (273-304)
[2020-07-13] MEDS: INSULIN REGULAR 100 UNIT/ML SUBCUT SCH ×4 (08:32→21:36)
[2020-07-13] MEDS ORDERED: FUROSEMIDE 40 MG/4 ML VIAL IV ONE (08:50)
[2020-07-13] MEDS: POTASSIUM CHLORIDE 20 MEQ TABLET PO SCH (10:05)
[2020-07-13] MEDS: THEOPHYLLINE ER 300 MG TABLET PO SCH ×2 (10:06→17:36)
[2020-07-13] MEDS: levETIRAcetam 500 MG TABLET PO SCH ×2 (10:06→21:36)
[2020-07-13] MEDS: CARBIDOPA/LEVODOPA 25-100 MG TABLET PO SCH ×3 (10:07→15:44)
[2020-07-13] MEDS: SIMVASTATIN 10 MG TABLET PO SCH (10:08)
[2020-07-13] MEDS: cefTRIAXone 1,000 MG in SYRINGE 1 EACH IV SCH (10:09)
[2020-07-13] MEDS: PANTOPRAZOLE 40 MG VIAL IV SCH (10:13)
[2020-07-13] MEDS: DOCUSATE SODIUM 100 MG CAPSULE PO SCH (21:36)
[2020-07-13] MEDS: ASPIRIN EC 325 MG TABLET PO SCH (21:36)
[2020-07-13] MEDS: AMITRIPTYLINE 25 MG TABLET PO SCH (21:36)
[2020-07-13] MEDS: metOLazone 2.5 MG TABLET PO SCH (21:36)
[2020-07-14] MEDS: CARBIDOPA/LEVODOPA 25-100 MG TABLET PO SCH ×3 (06:02→15:09)
[2020-07-14 06:15] LABS: Basophils % 0.5 % (0.0-0.8); Eosinophils # 0.2 10*3/uL (0.0-0.87); Eosinophils % 2.2 % (0.00-10.9); Hematocrit 33.8 VOL% (42.0-52.0); Hemoglobin 10.6 GM/DL (14.0-18.0); Immature Granulocytes % 0.6 %; Immature Granulocytes Absolute 0.05 #; Lymphocytes # 1.6 10*3/uL (1.4-4.0); Mean Corpuscular HGB Conc 31.4 GM/DL (32-36); Mean Corpuscular Volume 96.8 FL (87-102); Mean Platelet Volume 12.1 FL (9.6-12.0); Neutrophils % 70.7 % (38.7-73.9); Platelet Count 177 T/CUMM (130-400); Red Blood Count 3.49 MC/CUMM (3.8-5.5); Red Cell Distribution Width 13.9 % (9.3-17.3); White Blood Count 8.8 T/CUMM (4-12)
[2020-07-14 06:52] LABS: Band Neutrophils 4 % (0-10); Eosinophils 4 % (0-10); Lymphocytes 22 % (20-55); Segmented Neutrophils 68 % (50-85); Total Cells Counted 100
[2020-07-14 06:53] LABS: Calcium 8.8 MG/DL (8.5-10.1); Hypochromasia 1+; Microcytosis 1+; Osmolality,Calculated 282.7 MOS/KG (273-304); Ovalocytes 2+; Polychromasia Slight
[2020-07-14 06:54] LABS: Platelet Estimate Adequate
[2020-07-14] MEDS: INSULIN REGULAR 100 UNIT/ML SUBCUT SCH ×4 (09:02→21:29)
[2020-07-14] MEDS: PANTOPRAZOLE 40 MG VIAL IV SCH (10:05)
[2020-07-14] MEDS: cefTRIAXone 1,000 MG in SYRINGE 1 EACH IV SCH (10:06)
[2020-07-14] MEDS: SIMVASTATIN 10 MG TABLET PO SCH (10:07)
[2020-07-14] MEDS: THEOPHYLLINE ER 300 MG TABLET PO SCH ×2 (10:07→17:19)
[2020-07-14] MEDS: POTASSIUM CHLORIDE 20 MEQ TABLET PO SCH (10:08)
[2020-07-14] MEDS: levETIRAcetam 500 MG TABLET PO SCH ×2 (10:08→21:28)
[2020-07-14] MEDS: ASPIRIN EC 325 MG TABLET PO SCH (21:29)
[2020-07-14] MEDS: metOLazone 2.5 MG TABLET PO SCH (21:29)
[2020-07-14] MEDS: DOCUSATE SODIUM 100 MG CAPSULE PO SCH (21:29)
[2020-07-14] MEDS: AMITRIPTYLINE 25 MG TABLET PO SCH (21:29)
[2020-07-15 05:04] LABS: Basophils % 0.6 % (0.0-0.8); Eosinophils # 0.4 10*3/uL (0.0-0.87); Eosinophils % 5.8 % (0.00-10.9); Hematocrit 35.2 VOL% (42.0-52.0); Immature Granulocytes % 0.4 %; Immature Granulocytes Absolute 0.03 #; Lymphocytes % 29.1 % (21.2-54.2); Mean Corpuscular HGB Conc 31.3 GM/DL (32-36); Mean Corpuscular Volume 95.7 FL (87-102); Mean Platelet Volume 11.8 FL (9.6-12.0); Monocytes % 13.4 % (1.7-12.7); Neutrophils % 50.7 % (38.7-73.9); Platelet Count 202 T/CUMM (130-400); Red Blood Count 3.68 MC/CUMM (3.8-5.5); Red Cell Distribution Width 13.6 % (9.3-17.3); White Blood Count 6.8 T/CUMM (4-12)
[2020-07-15 05:24] LABS: Calcium 8.7 MG/DL (8.5-10.1); Osmolality,Calculated 283.5 MOS/KG (273-304)
[2020-07-15] MEDS: CARBIDOPA/LEVODOPA 25-100 MG TABLET PO SCH ×2 (06:12→12:05)
[2020-07-15 07:14] LABS: Eosinophils 8 % (0-10); Hypochromasia Slight; Lymphocytes 32 % (20-55); Microcytosis Slight; Ovalocytes Slight; Platelet Estimate Adequate; Segmented Neutrophils 49 % (50-85); Total Cells Counted 100
[2020-07-15] MEDS: INSULIN REGULAR 100 UNIT/ML SUBCUT SCH ×2 (08:53→12:04)
[2020-07-15] MEDS: PANTOPRAZOLE 40 MG VIAL IV SCH (09:06)
[2020-07-15] MEDS: cefTRIAXone 1,000 MG in SYRINGE 1 EACH IV SCH (09:07)
[2020-07-15] MEDS: SIMVASTATIN 10 MG TABLET PO SCH (09:08)
[2020-07-15] MEDS: levETIRAcetam 500 MG TABLET PO SCH (09:08)
[2020-07-15] MEDS: THEOPHYLLINE ER 300 MG TABLET PO SCH (09:08)
[2020-07-15] MEDS: POTASSIUM CHLORIDE 20 MEQ TABLET PO SCH (09:08)
[2020-07-15 12:51] VITALS: BP 134/64
== END 2020-07-15 14:48 | DRG 872 ==
LOC: EDBD → EDUNIT# → N.ED 08:03 → N.EDINP 13:07 → SUATTDRO 13:07 → N.EDINP 15:15 → N.TELES 15:55
PROVIDERS: ADMIT Family Medicine; ATTEND Internal Medicine